=== PATIENT | female | born 1980 | race Caucasian/White ===

== ENCOUNTER 2017-12-10 20:26 | Emergency (ER) | payer MEDICAID ==
--- NOTE | 2017-12-10 22:58 | ER Document Report ---
HPI - HPI Patient complains to provider of: possible dental abscess Onset: Other - pain for 4 days Quality of pain: Throbbing Pain Level: 4 Context: 37 yo female wtih dental pain, swelling top right. Had teeth cleaned 2 weeks ago. No fever. Associated Symptoms: None Exacerbated by: Denies Relieved by: Denies Similar symptoms previously: No Recently seen / treated by doctor: No - ROS ROS below otherwise negative: Yes Systems Reviewed and Negative: Yes All other systems reviewed and negative - REPRODUCTIVE LMP: na Past Medical History - General Information source: Patient - Social History Smoking Status: Never Smoker Frequency of alcohol use: None Drug Abuse: None Lives with: Family Family History: Reviewed & Not Pertinent - Medical History Medical History: Negative Surgical Hx: Negative Vertical Provider Document - CONSTITUTIONAL Agree With Documented VS: Yes Exam Limitations: No Limitations General Appearance: No Apparent Distress - INFECTION CONTROL TRAVEL OUTSIDE OF THE [place] IN LAST 30 DAYS: No - HEENT HEENT: Normocephalic Notes: abscess top right adjacent to 2nd bicuspid, at a fluctuant head. - NECK Neck: Supple. negative: Lymphadenopathy-Left, Lymphadenopathy-Right - RESPIRATORY Respiratory: Breath Sounds Normal, No Respiratory Distress O2 Sat by Pulse Oximetry: 99 - CARDIOVASCULAR Cardiovascular: Regular Rate, Regular Rhythm - DERM Integumentary: Warm, Dry Course - Vital Signs Vital signs: Temp Pulse Resp BP Pulse Ox 99.0 F 106 H 18 140/95 H 99 12/10/17 20:30 12/10/17 20:30 12/10/17 20:30 12/10/17 20:30 12/10/17 20:30 Procedures - Incision and Drainage Right Upper Time completed: 23:07 Type: Simple Incision Method: Incision made with needle - popped the dental abscess that was close to draining with 18 gauge needle Discharge - Discharge Clinical Impression: Dental abscess Condition: Good Disposition: HOME, SELF-CARE Instructions: Abscess ([facility]), Penicillin V K ([facility]) Additional Instructions: see your dentist next week pencillin warm compress motrin tylenol to er if worse over the weekend Prescriptions: Penicillin V Potassium [Penicillin Vk 500 mg Tablet] 500 mg PO QID #40 tablet
[2017-12-10] MEDS ORDERED: PENICILLIN V POTASSIUM 500 MG TABLET PO ONE (22:59)
[2017-12-10] MEDS ORDERED: IBUPROFEN 800 MG TABLET PO ONE (22:59)
[2017-12-10] MEDS ORDERED: ACETAMINOPHEN 325 MG TABLET PO ONE (22:59)
[2017-12-10] MEDS ORDERED: ONDANSETRON 4 MG TAB.RAPDIS PO ONE (22:59)
[2017-12-10 23:22] VITALS: BP 132/68
== END 2017-12-10 23:20 | disposition home or self-care (01) ==
LOC: ER 20:26
PROC: 0C9WXZ0 Drainage of Upper Tooth, External Approach, Single (ICD-10-PCS; principal; 2017-12-10)
DX: K04.7 Periapical abscess without sinus (principal); K08.89 Other specified disorders of teeth and supporting structures; R22.0 Localized swelling, mass and lump, head
CPT/HCPCS: 99283; 41800; J3490 ×2; S0119